=== PATIENT | female | born 1990 ===

== ENCOUNTER 2022-02-15 10:30 | Outpatient (CLI) | payer BC ==
[2022-02-15 11:06] LABS: BHCG - Serum Negative (NEGATIVE); Pregs Control Background? CLEAR/WHITE (CLR/WHITE); Pregs Control Bar Appear? YES (CONTROL BAR)
== END 2022-02-15 10:31 | disposition home or self-care (01) ==
LOC: RAD 10:30
PROVIDERS: ATTEND Obstetrics & Gynecology
DX: Z31.41 Encounter for fertility testing (principal); Z32.00 Encounter for pregnancy test, result unknown; N70.11 Chronic salpingitis
CPT/HCPCS: 58340; 74740; 84703